=== PATIENT | male | born 1955 | race Caucasian/White ===

== ENCOUNTER → 2019-11-11 | Outpatient (CLI) | payer OTHER ==
--- NOTE | 2019-11-11 12:07 | RAD ---
Cervical spine CT without contrast History: Left hand numbness, history of surgery Technique: Noncontrast CT imaging was performed of the cervical spine. Multiplanar images are reviewed. Exposure: One or more of the following individualized dose reduction techniques were utilized for this examination: 1. Automated exposure control 2. Adjustment of the mA and/or kV according to patient size 3. Use of iterative reconstruction technique. Comparison: July 14, 2018 MRI exam; CTA chest June 25, 2018 Findings: There is now anterior metallic plate and screws at the C5-6 level, eccentric to the left. There is no evidence of interbody fusion at this level. There is advanced C4-5 degenerative disc disease, to a somewhat lesser degree at C6-7. There is mild reversal of the lordotic curvature centered near C3-C4. There is negligible anterior spondylolisthesis C3-4. There is mild dextroscoliosis centered near C5. There is adequate alignment of the lateral masses of C1 relative to C2. Occipital condylar- C1 articulation is maintained. Atlantoaxial distance is within normal limits, mild associated degenerative change. There is some atherosclerotic calcification of the carotid arteries in the neck. Not present on previous chest CT in 2018, there is approximate 2.6 cm transverse by 3.4 similar AP focus of infiltrative density of the right upper lobe near the apex. C2-C3: There is moderate left facet hypertrophic change contributing to mild posterior narrowing of the left neural foramen. Right neural foramen and spinal canal are adequate. C3-C4: There is severe left facet degenerative change. There is left uncovertebral degenerative change. There is severe narrowing of the left neural foramen, mild narrowing on the right. Spinal canal is overall adequate. C4-5: There is again disc osteophyte complex, central canal likely narrowed to about 7 to 8 mm with a somewhat greater degree of left lateral recess stenosis. There is facet and uncovertebral degenerative change, left greater than right. There is severe left and moderate to severe right neural foramina compromise. C5-C6: There is again disc osteophyte complex and possible bulge. Central canal is narrowed to about 6 mm with left greater than right lateral recess stenosis. There is uncovertebral degenerative change bilaterally greater on the right. There is bilateral facet degenerative change. There is severe right and moderate left neural foramina compromise. C6-7: There is again disc osteophyte complex. Central canal is minimally narrowed about 8 to 9 mm also with degree of left lateral recess stenosis. There is uncovertebral degenerative change bilaterally. There is fairly severe left and [id number] right neural foramina compromise. C7-T1: There is minimal disc osteophyte complex. Spinal canal is adequate. Facet and uncovertebral degenerative change contributes to fairly severe narrowing of the left neural foramen, right neural foramen overall adequate. Impression: 1. Not present on previous chest CT, there is now focus of infiltrative density of the right upper lobe of the lung near the apex. This could be due to infectious infiltrate although underlying mass not excluded at this point in time. Short-term follow-up in 2-3 months after treatment is advised. If there is concern for possible other lung pathology, dedicated chest CT may be indicated. 2. There is again more significant cervical spinal stenosis at C5-6 and to lesser degree at C4-5 and C6-7 as described. There is anterior cervical fusion hardware C5-6, no evidence of interbody fusion. There is degenerative disc disease and spondylosis at other C4-5 and C6-7 levels. 3. There is multilevel facet and uncovertebral degenerative change contributing to multilevel cervical neural foramina compromise as stated. There is more significant narrowing on the left at C3-C4 and C7-T1, left greater than right at C4-C5 and C6-7, and right greater than left at C5-C6. Electronically signed by: Chad Agrawal MD (11/11/2019 12:05 PM) [id number]
== END | disposition home or self-care (01) ==
LOC: EEVIPCON 10:10 → CT 10:10
DX: M47.813 Spondylosis without myelopathy or radiculopathy, cervicothoracic region (principal); M48.03 Spinal stenosis, cervicothoracic region; M50.321 Other cervical disc degeneration at C4-C5 level; I65.29 Occlusion and stenosis of unspecified carotid artery; M25.78 Osteophyte, vertebrae
CPT/HCPCS: 72125